=== PATIENT | male | born 1950 | race Caucasian/White ===

== ENCOUNTER 2016-04-17 20:07 | Emergency (ER) | payer BC ==
[~2016-04-17] VITALS: Ht 182.9 cm; Wt 90.7 kg
[2016-04-17 21:22] LABS: BASO % 0 % (0-3); EOS % 0 % (0-3); HEMATOCRIT 46.4 % (39.0-53.0); HEMOGLOBIN 15.5 g/dL (13.0-17.5); LYMPH # 0.6 x10^3/uL (1.0-4.8); LYMPH % 5 % (24-48); MEAN CORPUSCULAR HEMOGLOBIN 33 pg (25-35); MEAN CORPUSCULAR HGB CONC 34 g/dL (31-37); MEAN CORPUSCULAR VOLUME 98 fL (79-100); MONO % 10 % (0-9); NEUT % 84 % (31-73); PLATELET COUNT 297 x10^3/uL (140-400); RED BLOOD COUNT 4.75 x10^6/uL (4.30-5.70); RED CELL DISTRIBUTION WIDTH 13.7 % (11.5-14.5); WHITE BLOOD COUNT 12.3 x10^3/uL (4.0-11.0)
[2016-04-17 21:40] LABS: CALCIUM 9.1 mg/dL (8.5-10.1); GFR 75.5; POTASSIUM 3.8 mmol/L (3.5-5.1)
[2016-04-17 21:46] LABS: ALBUMIN 3.7 g/dL (3.4-5.0); DIRECT BILIRUBIN 0.1 mg/dL (0.0-0.2); TOTAL BILIRUBIN 1.1 mg/dL (0.2-1.0); TOTAL PROTEIN 7.5 g/dL (6.4-8.2)
--- NOTE | 2016-04-17 22:05 | RAD ---
PROCEDURE Head CT without contrast. HISTORY Intracranial hemorrhage. TECHNIQUE Computed tomographic images of the head were obtained without contrast. One or more of the following individualized dose reduction techniques were utilized for this examination: 1. Automated exposure control; 2. Adjustment of the mA and/or kV according to patient size; 3. Use of iterative reconstruction technique. COMPARISON None. FINDINGS There is no acute or subacute hemorrhage. There is no mass effect or midline shift. There is no hydrocephalus. There are scattered areas of hypodensity within the cerebral white matter, likely due to chronic small vessel disease. There is mild cerebral volume loss. There is severe left maxillary and moderate bilateral ethmoid sinus mucosal thickening. The orbits and mastoid air cells are clear. No calvarial lesion is seen. IMPRESSION 1. Scattered areas of hypodensity within the cerebral white matter, likely due to chronic small vessel disease. 2. Severe left maxillary and moderate bilateral ethmoid sinus disease. 3. Note is made that MRI is more sensitive for acute infarction. Electronically signed by: Melanie Jones (Apr 17, 2016 22:04:47)
[2016-04-17 22:24] LABS: OBC FLU VALID
[2016-04-17 22:46] LABS: BILIRUBIN,URINE NEGATIVE (NEG); GLUCOSE,URINE NEGATIVE (NEG); NITRITE,URINE NEGATIVE (NEG); PH,URINE 5.5; PROTEIN,URINE 100 mg/dL (NEG-TRACE); UROBILINOGEN,URINE 0.2 mg/dL (0.2 mg/dL)
[2016-04-17 22:52] LABS: BACTERIA,URINE FEW /HPF (0-FEW); SQUAMOUS EPITHELIAL CELL,UR MANY /LPF
[2016-04-17 23:04] VITALS: BP 168/95
[2016-04-17] MEDS ORDERED: OSEL75CA PO (23:16)
[2016-04-17] MEDS ORDERED: IBUP200T77 PO (23:16)
[2016-04-17] MEDS ORDERED: AZIT250T6 PO (23:16)
--- NOTE | 2016-04-17 23:16 | PHYS DOC ---
Past Medical History Past Medical History: Hypertension Past Surgical History: Other Additional Past Surgical Histo: HERNIA REPAIR Alcohol Use: None Drug Use: None Adult General Chief Complaint Chief Complaint: Influenza HPI HPI 65-year-old male presenting to the emergency department with a productive cough for the past 3 weeks. He reports thick cleared sputum. He reports fevers myalgias and chills at home. He has been using multiple different medications including cough syrups antibiotics and steroids and has been seen by his primary care. Today he has had worsening shortness of breath with headache and body aches. His pain is moderate intermittent generalized and without alleviating factors. Review of systems is negative for chest pain abdominal pain nausea or vomiting. All other review of systems is negative unless otherwise noted in history of present illness. Review of Systems Review of Systems SEE ABOVE. Allergies Allergies Allergies Coded Allergies Type Severity Reaction Last Updated Verified meperidine Allergy Intermediate 04/17/16 Yes Physical Exam Physical Exam Constitutional: Well developed, well nourished, no acute distress, non-toxic appearance. HENT: Normocephalic, atraumatic, bilateral external ears normal, oropharynx moist, no oral exudates, nose normal. [] Eyes: PERRLA, EOMI, conjunctiva normal, no discharge. Neck: Normal range of motion, no tenderness, supple, no stridor. [] Cardiovascular:Heart rate regular rhythm, no murmur Lungs & Thorax: Bilateral breath sounds clear to auscultation [] Abdomen: Bowel sounds normal, soft, no tenderness, no masses, no pulsatile masses. Skin: Warm, dry, no erythema, no rash. [] Back: No tenderness, no CVA tenderness. [] Extremities: No tenderness, no cyanosis, no clubbing, ROM intact, no edema. Neurologic: Alert and oriented X 3, normal motor function, normal sensory function, no focal deficits noted. Psychologic: Affect normal, judgement normal, mood normal. [] Current Patient Data Vital Signs Vital Signs Date Time Temp Pulse Resp B/P Pulse Ox O2 Delivery O2 Flow Rate FiO2 04/17/16 23:04 100 168/95 04/17/16 20:49 99.3 25 96 Room Air 99.3 Lab Values Laboratory Tests Test 04/17/16 21:15 04/17/16 22:22 04/17/16 22:38 White Blood Count 12.3x10^3/uL (4.0-11.0) H Red Blood Count 4.75x10^6/uL (4.30-5.70) Hemoglobin 15.5g/dL (13.0-17.5) Hematocrit 46.4% (39.0-53.0) Mean Corpuscular Volume 98fL (79-100) Mean Corpuscular Hemoglobin 33pg (25-35) Mean Corpuscular Hemoglobin Concent 34g/dL (31-37) Red Cell Distribution Width 13.7% (11.5-14.5) Platelet Count 297x10^3/uL (140-400) Neutrophils (%) (Auto) 84% (31-73) H Lymphocytes (%) (Auto) 5% (24-48) L Monocytes (%) (Auto) 10% (0-9) H Eosinophils (%) (Auto) 0% (0-3) Basophils (%) (Auto) 0% (0-3) Neutrophils # (Auto) 10.3x10^3uL (1.8-7.7) H Lymphocytes # (Auto) 0.6x10^3/uL (1.0-4.8) L Monocytes # (Auto) 1.3x10^3/uL (0.0-1.1) H Eosinophils # (Auto) 0.0x10^3/uL (0.0-0.7) Basophils # (Auto) 0.0x10^3/uL (0.0-0.2) Sodium Level 142mmol/L (136-145) Potassium Level 3.8mmol/L (3.5-5.1) Chloride Level 104mmol/L (98-107) Carbon Dioxide Level 26mmol/L (21-32) Anion Gap 12 (6-14) Blood Urea Nitrogen 16mg/dL (8-26) Creatinine 1.0mg/dL (0.7-1.3) Estimated GFR (Cockcroft-Gault) 75.5 Glucose Level 104mg/dL (70-99) H Calcium Level 9.1mg/dL (8.5-10.1) Total Bilirubin 1.1mg/dL (0.2-1.0) H Direct Bilirubin 0.1mg/dL (0.0-0.2) Aspartate Amino Transferase (AST) 18U/L (15-37) Alanine Aminotransferase (ALT) 26U/L (16-63) Alkaline Phosphatase 77U/L (46-116) Troponin I Quantitative < 0.017ng/mL (0.000-0.055) Total Protein 7.5g/dL (6.4-8.2) Albumin 3.7g/dL (3.4-5.0) Lipase 173U/L (73-393) Influenza Type A Antigen Positive (NEGATIVE) Influenza Type B Antigen Negative (NEGATIVE) Urine Collection Type Unknown Urine Color Yellow Urine Clarity Cloudy Urine pH 5.5 Urine Specific Turner >=1.030 Urine Protein 100mg/dL (NEG-TRACE) Urine Glucose (UA) Negativemg/dL (NEG) Urine Ketones (Stick) Negativemg/dL (NEG) Urine Blood Small (NEG) Urine Nitrite Negative (NEG) Urine Bilirubin Negative (NEG) Urine Urobilinogen Dipstick 0.2mg/dL (0.2 mg/dL) Urine Leukocyte Esterase Negative (NEG) Urine RBC 3-5/HPF (0-2) Urine WBC 1-4/HPF (0-4) Urine Squamous Epithelial Cells Many/LPF Urine Amorphous Sediment Present/HPF Urine Bacteria Few/HPF (0-FEW) Urine Granular Casts Occasional/HPF Urine Mucus Marked/LPF Laboratory Tests 04/17/16 21:15 Laboratory Tests 04/17/16 21:15 EKG EKG EKG shows sinus rhythm with regular rate. Normal intervals. left jarrell axis. ST segments are congruent. Not suggestive of ACS. Reviewed by myself.[] Radiology/Procedures Radiology/Procedures []Chest x-ray reviewed by myself shows no obvious infiltrate or pneumothorax present. No obvious acute cardiopulmonary process present. Course & Med Decision Making Course & Med Decision Making Pertinent Labs and Imaging studies reviewed. (See chart for details) [] 65-year-old male presenting to the emergency department with signs and symptoms suggestive of influenza. On examination the patient had a low-grade temperature with mild tachycardia. Otherwise hypertension. Physical exam was unremarkable. Chest x-ray unremarkable. EKG unremarkable. Blood work obtained which showed mild leukocytosis urinalysis showed dehydration without suggestion of infection. Chemistry panel unremarkable. Flu testing positive. The patient was prescribed Tamiflu ibuprofen and azithromycin to follow-up with his primary care physician over the next 2-3 days. Dragon Disclaimer Dragon Disclaimer This electronic medical record was generated, in whole or in part, using a voice recognition dictation system. Departure Departure Impression: Primary Impression: Influenza Disposition: ADMITTED INPATIENT Condition: STABLE Referrals: MOISÉS LUKE MD (PCP) Patient Instructions: Influenza, Adult Additional Instructions: Thank you for allowing us to participate in your care today. Followup with your primary care physician in 3 days if your symptoms do not improve. If you do not have a primary care provider you can ask for a list of our primary care providers. Return to the emergency department you have any new or concerning findings. This should be evaluated by the primary care physician and any necessary consulting services for continued management within a few days after discharge. Return to emergency room if you have any new or concerning symptoms including but not limited to fever, chills, nausea, vomiting, intractable pain, any new rashes, chest pain, shortness of air, uncontrolled bleeding, difficulty breathing, and/or vision loss. Scripts Azithromycin (Azithromycin Tablet)250 Mg Tablet1 Pkg PO UD #6 TAB Prov:CAMPBELL LOCO MD 04/17/16 Oseltamivir Phosphate (Tamiflu)75 Mg Capsule1 Cap PO BID #10 CAP Prov:CAMPBELL LOCO MD 04/17/16 Ibuprofen 200 Mg [id number] Mg PO PRN Q6HRS PRN INFLAMMATION #15 TAB Prov:CAMPBELL LOCO MD 04/17/16 CAMPBELL LOCO MD Apr 17, 2016 23:16
--- NOTE | 2016-04-18 07:41 | RAD ---
Portable chest, 04/17/2016: History: Cough Comparison is made to a study from 11/28/2010. The heart size and pulmonary vascularity are normal. There is mild tortuosity of the thoracic aorta. No pulmonary infiltrates are seen. There is no evidence of pleural fluid. Mild spurring is present in the spine. IMPRESSION: No acute cardiopulmonary abnormality is detected.
--- NOTE | 2016-04-18 09:11 | EKG ---
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
== END 2016-04-17 23:28 | disposition home or self-care (01) ==
LOC: ER 20:07
DX: J11.1 Influenza due to unidentified influenza virus with other respiratory manifestations (principal); E86.0 Dehydration; R00.0 Tachycardia, unspecified; D72.829 Elevated white blood cell count, unspecified; I10 Essential (primary) hypertension; Z88.8 Allergy status to other drugs, medicaments and biological substances
CPT/HCPCS: 36415; 70450; 71010; 80048; 80076; 81001; 83690; 84484; 85027; 87804; 93005; 99285-25

== ENCOUNTER → 2018-04-03 | Outpatient (CLI) | payer OTHER ==
[~2018-04-03] MED LIST: AZIT250T6 PO; IBUP200T77 PO; LISI-334 PO; OSEL75CA PO; OXYC1TAB15 PO
--- NOTE | 2018-04-03 14:32 | EKG ---
[facility] [address] [place] [address] Test Date: 2018-04-03 Test Time: 14:30:07 Pat Name: LEONA RAM Department: Room: Gender: M Hospital Security Officer: CARLOS : 1950 Requested By: CARMENCITA LEE Order Number: [id number] Reading MD: Danish Fuchs MD Measurements Intervals [place] Rate: 78 P: 45 NM: 146 QRS: 1 QRSD: 88 T: 33 QT: 364 QTc: 418 Interpretive Statements SINUS RHYTHM Electronically Signed On 04-03-2018 16:42:31 MACHINE PROGRAMMER by Danish Fuchs MD
== END | disposition home or self-care (01) ==
LOC: SURGPAT 13:50
PROVIDERS: ATTEND Surgery
DX: Z01.818 Encounter for other preprocedural examination (principal); K40.90 Unilateral inguinal hernia, without obstruction or gangrene, not specified as recurrent
CPT/HCPCS: 93005

== ENCOUNTER 2018-04-06 06:52 | Day surgery (SDC) | payer OTHER ==
[~2018-04-06] VITALS: Ht 182.9 cm; Wt 84.4 kg
[~2018-04-06 06:52] MED LIST changes: -OXYC1TAB15 PO
[2018-04-06] MEDS ORDERED: BUPIVACAINE-EPI 0.25%-1:200000 MPF 30 ML VIAL. ONE (06:58)
[2018-04-06] MEDS ORDERED: ONDANSETRON PF 4 MG/2 ML VIAL. IV PRN (07:00)
[2018-04-06] MEDS ORDERED: IV RINGERS,LACTATED 1000ML 1,000 ML IV SCH (07:00)
[2018-04-06] MEDS ORDERED: LIDOCAINE 1% PF 2 ML VIAL. ID PRN (07:00)
[2018-04-06] MEDS ORDERED: PROCHLORPERAZINE 10 MG/2 ML VIAL. IV PRN (07:00)
[2018-04-06] MEDS ORDERED: fentaNYL PF VIAL 100 MCG/2 ML VIAL IV PRN ×3 (07:00→07:30)
[2018-04-06] MEDS ORDERED: PROPOFOL 20 ML IV ONE (07:05)
[2018-04-06] MEDS ORDERED: ONDANSETRON PF 4 MG/2 ML VIAL. ONE (07:05)
[2018-04-06] MEDS ORDERED: LIDOCAINE 2% PF 5 ML VIAL. ONE (07:05)
[2018-04-06] MEDS ORDERED: DEXAMETHASONE SOD PHOS 20 MG/5 ML VIAL. ONE (07:05)
[2018-04-06] MEDS ORDERED: ROCURONIUM 50 MG/5 ML VIAL. ONE (07:06)
[2018-04-06] MEDS ORDERED: SUCCINYLCHOLINE 200 MG/10 ML VIAL. ONE (07:36)
[2018-04-06] MEDS ORDERED: fentaNYL PF VIAL 100 MCG/2 ML VIAL ONE ×2 (07:36→08:16)
[2018-04-06] MEDS ORDERED: NEOSTIGMINE 10 MG/10 ML VIAL. ONE (08:17)
[2018-04-06] MEDS ORDERED: SEVOFLURANE 61 TO 120 MINUTES. IH ONE (08:17)
[2018-04-06] MEDS ORDERED: GLYCOPYRROLATE 1 MG/5 ML VIAL. ONE (08:17)
[2018-04-06] MEDS ORDERED: ePHEDrine PF IN SALINE 50 MG/5 ML DISP.SYRIN IV ONE (08:20)
[2018-04-06] MEDS ORDERED: PHENYLEPHRINE 10 MG/ML VIAL. ONE (08:53)
[2018-04-06] MEDS ORDERED: KETOROLAC 30 MG/ML INJ FOR OR. INJ ONE (08:57)
--- NOTE | 2018-04-06 09:11 | PDOC4 ---
Operative Note Operative Note Date: 04/06/2018 Preoperative diagnosis: Right inguinal hernia Postoperative diagnosis: Same Procedure: Robotic-assisted laparoscopic right inguinal hernia repair with mesh Surgeon: Mark Specimen: None Dictation: Patient is a 67-year-old male is complained of right groin pain with a bulge procedure of robotic-assisted laparoscopic right inguinal hernia repair with mesh was explained to the patient in detail risks benefits were also discussed including bleeding infection injury to intra-abdominal contents possibly necessitating further or open operations. The patient seemed to understand and gave both verbal and written consent to have the procedure performed. Patient was taken to the operative Raposa supine position general anesthesia was initiated once patient was sleep and intubated is placed in low lithotomy position and his abdomen was prepped and draped usual sterile fashion using ChloraPrep and area just above the umbilicus was injected with quarter percent Marcaine with epinephrine incision was made Lembert scalpel Veress needle was placed within the abdomen creating pneumoperitoneum once this complete a da Sudha 8 mm port was placed and a camera was placed within the abdomen to inspected patient was placed in steep Trendelenburg was noted there is fairly large right inguinal hernia with some incarcerated small bowel left side appeared normal. A 8 mm da Sudha ports placed in the right mid abdomen and a second 8 mm da Sudha ports placed in the left mid abdomen that eventually robotic then brought in and docked all port sites surgeon went to the robotic console using cautery grasper and Endo Garfield scissors the peritoneum over the right groin area was incised this was propagated posteriorly reducing all hernia contents in the hernia sac was reduced once this pocket was complete a large Bard 3-D max mesh for the right side was placed over the hernia defect the peritoneum was then closed with a running 20 the LOC absorbable suture. Surgeon re-scrubbed back to the operative field and all ports were removed and intervention robot undocked all incisions at the skin sites were closed for septic tumor Monocryl Mastisol Steri-Strips and island dressings were applied. The patient was awakened and extubated in the operating room taken to recovery in stable condition all sponge instrument needle counts listed as correct estimated blood loss 5 mL. CARMENCITA LEE MD Apr 06, 2018 09:11
[2018-04-06] MEDS ORDERED: oxyCODONE/APAP 5/325 1 TAB TABLET PO ONE ×2 (09:30)
[2018-04-06] MEDS ORDERED: OXYC1TAB15 PO (09:44)
[2018-04-06] MEDS: fentaNYL PF VIAL 100 MCG/2 ML VIAL IV PRN ×2 (09:59→10:16)
--- NOTE | 2018-04-06 10:19 | DISCH ---
DISCHARGE INSTRUCTIONS Condition on Discharge Condition on Discharge: Stable Activity After Discharge Activity Instructions for Disc: Avoid exertion Other activity instructions: no lifting more than 20 pounds for 2 weeks Diet after Discharge Diet after Discharge: Regular Wound Incision Care Other wound/incision instructi: Martha shower in 24 hours Contacting the DRAlonzo after DC Call your doctor for: If your condition worsens Follow-Up Follow up with: Dr. Lee in 2 weeks CARMENCITA LEE MD Apr 06, 2018 10:19
[2018-04-06 10:50] VITALS: BP 143/86
== END 2018-04-06 11:10 | disposition home or self-care (01) ==
LOC: SURG 06:52
PROVIDERS: ATTEND Surgery
DX: K40.90 Unilateral inguinal hernia, without obstruction or gangrene, not specified as recurrent (principal); I10 Essential (primary) hypertension; F17.200 Nicotine dependence, unspecified, uncomplicated; Z88.8 Allergy status to other drugs, medicaments and biological substances; Z88.6 Allergy status to analgesic agent; Z82.49 Family history of ischemic heart disease and other diseases of the circulatory system; Z79.899 Other long term (current) drug therapy
CPT/HCPCS: 49650; A7015; C1781; C1782; J0330; J0696; J1100; J1885; J2001; J2405; J2704; J2710; J3010; J3490; S2900

== ENCOUNTER → 2018-12-26 | Outpatient (CLI) | payer OTHER ==
[~2018-12-26] MED LIST changes: +OXYC1TAB15 PO
--- NOTE | 2018-12-26 16:39 | RAD ---
EXAM: Soft tissue ultrasound right groin. HISTORY: Right inguinal hernia repair in March. Now with groin pain after a pop. COMPARISON: None. FINDINGS: Sonographic evaluation of the right groin was performed at the site of concern. This reveals a recurrent fat-containing hernia. The hernia sac measures 4.7 x 2.8 cm. No bowel loops are involved. IMPRESSION: 1. Fat-containing recurrent right inguinal hernia. Electronically signed by: Alicja Oliva MD (12/26/2018 4:36 PM) [facility]
== END | disposition home or self-care (01) ==
LOC: US 14:57
PROVIDERS: ATTEND Surgery
DX: K40.91 Unilateral inguinal hernia, without obstruction or gangrene, recurrent (principal)
CPT/HCPCS: 76881

== ENCOUNTER 2019-03-22 06:58 | Day surgery (SDC) | payer MEDICARE ==
[~2019-03-22] VITALS: Ht 182.9 cm; Wt 84.0 kg
[~2019-03-22 06:58] MED LIST changes: +ACETAMINOPHEN 500 MG TABLET PO PRN
[2019-03-22] MEDS ORDERED: fentaNYL PF VIAL 100 MCG/2 ML VIAL IV PRN ×2 (07:00)
[2019-03-22] MEDS ORDERED: ONDANSETRON PF 4 MG/2 ML VIAL. IV PRN (07:00)
[2019-03-22] MEDS ORDERED: IV RINGERS,LACTATED 1000ML 1,000 ML IV SCH (07:00)
[2019-03-22] MEDS ORDERED: LIDOCAINE 1% PF 2 ML VIAL. ID PRN (07:00)
[2019-03-22] MEDS ORDERED: HYDROmorphone 2 MG/ML VIAL IV PRN (07:00)
[2019-03-22] MEDS ORDERED: PROCHLORPERAZINE 10 MG/2 ML VIAL. IV PRN (07:00)
[2019-03-22] MEDS ORDERED: MORPHINE SULFATE 2 MG/ML VIAL. IV PRN (07:00)
[2019-03-22] MEDS ORDERED: OMEP40CA45 PO (07:17)
[2019-03-22] MEDS ORDERED: BUPIVACAINE-EPI 0.25%-1:200000 MPF 30 ML VIAL. ONE (07:23)
[2019-03-22] MEDS ORDERED: PROPOFOL 20 ML IV ONE (07:45)
[2019-03-22] MEDS ORDERED: ROCURONIUM 50 MG/5 ML VIAL. ONE (07:45)
[2019-03-22] MEDS ORDERED: LIDOCAINE 2% PF 5 ML VIAL. ONE (07:45)
[2019-03-22] MEDS ORDERED: DEXAMETHASONE SOD PHOS 4 MG/ML VIAL ONE (07:45)
[2019-03-22] MEDS ORDERED: fentaNYL PF VIAL 100 MCG/2 ML VIAL ONE (07:45)
[2019-03-22] MEDS ORDERED: ONDANSETRON PF 4 MG/2 ML VIAL. ONE (07:45)
[2019-03-22] MEDS ORDERED: MIDAZOLAM HCL/PF 2 MG/2 ML VIAL. ONE (07:45)
--- NOTE | 2019-03-22 07:48 | PDOC1 ---
History and Physical Date of Admission Date of Admission DATE: 03/22/19 TIME: 07:45 Identification/Chief Complaint Chief Complaint Right groin pain Source Source: Patient History of Present Illness History of Present Illness 68-year-old male had a right inguinal hernia repair done March 2018 several months after he developed recurrent right groin pain ultrasound shows recurrent right inguinal hernia Past Medical History Cardiovascular: HTN Pulmonary: No pertinent hx GI: No pertinent hx Heme/Onc: No pertinent hx Hepatobiliary: No pertinent hx Psych: No pertinent hx Rheumatologic: No pertinent hx Infectious disease: No pertinent hx ENT: No pertinent hx Endocrine: No pertinent hx Dermatology: No pertinent hx Past Surgical History Past Surgical History: Hernia Repair (bilateral inguinal hernia repairs) Family History Family History: No Significant Social History Smoke: No ALCOHOL: none Drugs: None Current Medications Current Medications Current Medications Ondansetron HCl (Zofran) 4 mg PRN Q6HRS PRN IV NAUSEA/VOMITING; Start 03/22/19 at 07:00; Stop 03/23/19 at 06:59 Fentanyl Citrate (Fentanyl 2ml Vial) 25 mcg PRN Q5MIN PRN IV MILD PAIN 1-3; Start 03/22/19 at 07:00; Stop 03/23/19 at 06:59 Fentanyl Citrate (Fentanyl 2ml Vial) 50 mcg PRN Q5MIN PRN IV MODERATE TO SEVERE PAIN; Start 03/22/19 at 07:00; Stop 03/23/19 at 06:59 Morphine Sulfate (Morphine Sulfate) 1 mg PRN Q10MIN PRN IV SEVERE PAIN 7-10; Start 03/22/19 at 07:00; Stop 03/23/19 at 06:59 Ringer's Solution 1,000 ml @ 30 mls/hr Q24H IV Last administered on 03/22/19at 07:25; Start 03/22/19 at 07:00; Stop 03/22/19 at 18:59 Lidocaine HCl (Xylocaine-Mpf 1% 2ml Vial) 2 ml PRN 1X PRN ID PRIOR TO IV START; Start 03/22/19 at 07:00; Stop 03/23/19 at 06:59 Hydromorphone HCl (Dilaudid) 0.5 mg PRN Q10MIN PRN IV SEV PAIN, Second choice; Start 03/22/19 at 07:00; Stop 03/23/19 at 06:59 Prochlorperazine Edisylate (Compazine) 5 mg PACU PRN PRN IV NAUSEA, MRX1; Start 03/22/19 at 07:00; Stop 03/23/19 at 06:59 Acetaminophen (Tylenol) 1,000 mg OC PROC PRN PO PRE-OP Last administered on 03/22/19at 07:26; Start 03/22/19 at 06:00; Stop 03/22/19 at 18:00 Cefazolin Sodium/ Dextrose 50 ml @ 100 mls/hr 1X PREOP PRN IV PRIOR TO PROCEDURE; Start 03/22/19 at 06:00; Stop 03/22/19 at 18:00 Bupivacaine HCl/ Epinephrine Bitart (Sensorcaine-Epi 0.25%-1:069002 Mpf) 30 ml STK-MED ONCE .ROUTE ; Start 03/22/19 at 07:23; Stop 03/22/19 at 07:23; Status DC Active Scripts Active Reported Omeprazole 40 Mg Capsule.dr 1 Cap PO DAILY Lisinopril 20 Mg Tablet 1 Tab PO BID Allergies Allergies: Coded Allergies: meperidine (Verified Adverse Reaction, Intermediate, Pt imobilized. Makes skin hurt., 03/22/19) morphine (Verified Adverse Reaction, Mild, Doesn't work, 03/22/19) ROS Genitourinary: YES Pain (right groin pain) Physical Exam General: Alert, Oriented X3, Cooperative, mild distress HEENT: Atraumatic, PERRLA, EOMI Lungs: Clear to auscultation, Normal air movement Heart: RRR, no murmurs Abdomen: Normal bowel sounds, Soft, No tenderness Male Genitals Exam: inguinal tenderness (right groin tenderness with asymmetry) Rectal Exam: not examined Extremities: No edema Skin: No significant lesion Neuro: Normal speech Psych/Mental Status: Mental status NL Vitals Vitals Vital Signs Date Time Temp Pulse Resp B/P (MAP) Pulse Ox O2 Delivery O2 Flow Rate FiO2 03/22/19 07:21 97.9 77 20 100 97.9 03/22/19 07:13 163/87 Room Air VTE Prophylaxis Ordered VTE Prophylaxis Devices: Yes VTE Pharmacological Prophylaxi: Contraindicated Assessment/Plan Assessment/Plan Recurrent right inguinal hernia plan robotic-assisted laparoscopic inguinal hernia repair with mesh CARMENCITA LEE MD Mar 22, 2019 07:48
[2019-03-22] MEDS ORDERED: ceFAZolin 2GM PREMIX 2 GM/50 ML BAG IV ONE (08:00)
[2019-03-22] MEDS ORDERED: MINERAL OIL for SURGERY 10 ML VIAL. MC ONE (08:39)
[2019-03-22] MEDS ORDERED: SEVOFLURANE 61 TO 120 MINUTES. IH ONE (08:46)
[2019-03-22] MEDS ORDERED: PHENYLEPHRINE in 0.9% NACL PF 1 MG/10 ML SYRINGE. IV ONE (08:46)
[2019-03-22] MEDS ORDERED: KETOROLAC 30 MG/ML VIAL. ONE (09:00)
[2019-03-22] MEDS ORDERED: NEOSTIGMINE METHYLSULFATE 5 MG/5 ML SYRINGE. ONE (09:00)
[2019-03-22] MEDS ORDERED: GLYCOPYRROLATE 1 MG/5 ML VIAL. ONE (09:00)
--- NOTE | 2019-03-22 09:42 | PDOC4 ---
Operative Note Operative Note Date: 03/22/2019 Preoperative diagnosis: Recurrent right inguinal hernia Postoperative diagnosis: Same Procedure: Robotic-assisted laparoscopic right inguinal hernia repair with mesh Surgeon: Mark Specimen: None Dictation: Patient is a 68-year-old woman who had bilateral inguinal hernia repairs many years ago developed a recurrence in the right inguinal hernia underwent laparoscopic repair approximately 1 year ago has developed a recurrence procedure of robotic-assisted laparoscopic right inguinal hernia repair was explained to the patient detail risk benefits were also discussed including bleeding infection injury to intra-abdominal contents possibly necessitating further or open operations alternatives to this procedure also discussed with the patient who seemed to understand and gave both verbal and written consent to have the procedure performed. Patient was taken to the operating room placed in supine position general anesthesia was initiated once patient was sleep and intubated was placed in low lithotomy position and his abdomen was prepped and draped usual sterile fashion using ChloraPrep and area at the umbilicus was injected with quarter percent Marcaine with epinephrine incision was made 11 blade scalpel and a varies needle was placed within the abdomen creating pneumoperitoneum once this complete 8mm da Sudha port was placed and a da Sudha camera was placed within the abdomen which was inspected was noted in the right groin have a fairly large direct inguinal hernia. A area in the right mid abdomen was injected with quarter percent Marcaine incision was made with an 11 blade scalpel and a 8 mm da Sudha port was placed in the right side as well as on the left. Eventually robot was brought in and docked all port sites surgeon went to the robotic console using grasper and Endo Garfield scissors the peritoneum over the right side was taken down reducing the hernia defect. Fairly large direct hernia used a Bard ventral light ST mesh 4 x 6" this was placed over the hernia defect this was treated into place with 3-0 Vicryl superiorly along the border of the mesh to the abdominal wall and then a suture was placed at the Gilmer's ligament. The perineum was then closed over the mesh with a running V LOC absorbable suture. Once this was complete the pneumoperitoneum was reduced all ports removed the skin incisions were closed f or septic and a Monocryl Mastisol Steri-Strips and island dressings were applied. Patient was awakened and asked bated operating room taken to recovery in stable condition all sponge instrument needle counts listed as correct estimated blood loss 5 mL CARMENCITA LEE MD Mar 22, 2019 09:42
--- NOTE | 2019-03-22 09:44 | DISCH ---
DISCHARGE INSTRUCTIONS Condition on Discharge Condition on Discharge: Stable Activity After Discharge Activity Instructions for Disc: Avoid exertion Other activity instructions: no lifting more than 20 pounds for 2 weeks Diet after Discharge Diet after Discharge: Regular Wound Incision Care Other wound/incision instructi: a shower in 24 hours Contacting the DRAlonzo after DC Call your doctor for: If your condition worsens Follow-Up Follow up with: Dr. Lee in 2 weeks CARMENCITA LEE MD Mar 22, 2019 09:44
[2019-03-22] MEDS ORDERED: CELE200C PO (10:00)
[2019-03-22] MEDS ORDERED: CELECOXIB 100 MG CAPSULE. PO SCH (10:00)
[2019-03-22] MEDS ORDERED: GABA300C18 PO (10:02)
[2019-03-22 10:50] VITALS: BP 138/89
[2019-03-22] MEDS ORDERED: GABAPENTIN 300 MG CAPSULE. PO SCH (11:00)
== END 2019-03-22 11:35 | disposition home or self-care (01) ==
LOC: SURG 06:58
PROVIDERS: ATTEND Surgery
DX: K40.91 Unilateral inguinal hernia, without obstruction or gangrene, recurrent (principal); I10 Essential (primary) hypertension; Z98.890 Other specified postprocedural states; Z88.8 Allergy status to other drugs, medicaments and biological substances; Z79.899 Other long term (current) drug therapy
CPT/HCPCS: 49651; J1100; J1885; J2001; J2250; J2370; J2405; J2704; J2710; J3010; J3490; S2900; A7015; C1781; J0696; J7120

== ENCOUNTER → 2019-04-09 | Outpatient (CLI) | payer OTHER ==
[2019-03-22 10:50] VITALS: BP 138/89
[~2019-04-09] MED LIST changes: -ACETAMINOPHEN 500 MG TABLET PO PRN; +CELE200C PO; +GABA300C18 PO; +OMEP40CA45 PO
--- NOTE | 2019-04-09 13:57 | KCIC ---
MRI Cervical Spine Without Contrast History: Radiculopathy, previous fall, progressive neck pain, loss of range of motion, stiffness, crepitus, bilateral upper extremity numbness Technique: Multiplanar, multi sequential noncontrast MR imaging was performed of the cervical spine. Comparison: None Findings: There is significant motion degradation. Cervical cord caliber is within normal limits, no defined or expansile cervical cord signal abnormality. Accurate evaluation for subtle cord signal change is limited due to motion degradation. There is mild reversal of the lordotic curvature centered near C5-C6. There is grade 1 posterior subluxation C6 relative to C7, very mild grade 1 anterior spondylolisthesis C3-4 and C4-C5. There is fairly advanced degenerative disc disease greater posteriorly at C6-7, lesser degree of degenerative disc disease at C5-C6, and minimally at C3-C4. There is edema associated with the facet articulations greater on the right at C2-3. C2-C3: There is severe facet degenerative change on the left, to lesser degree on the right. Spinal canal and right neural foramen are adequate, likely mild narrowing of the left neural foramen from posteriorly by facet. C3-C4: There is severe left facet hypertrophic change, to lesser degree on the right. There is minimal disc osteophyte complex, superimposed shallow protrusion greatest centrally about 1 to 2 mm AP, mild indentation upon the ventral thecal sac. Central canal is adequate about 11 mm. There is left uncovertebral degenerative change. Difficult to accurately characterize due to motion, there is probable moderate to severe narrowing of the left neural foramen, possible mild narrowing on the right. C4-C5: Spinal canal is adequate. There is severe, left greater than right facet degenerative change. There may be minimal narrowing of the right neural foramen, left neural foramen not significantly narrowed. C5-C6: There is severe facet degenerative change bilaterally. There is disc osteophyte complex and bulge. There is at least mild buckling of the ligamentum flavum. Central canal is narrowed to about 7 to 8 mm also with mild, right greater than left lateral recess stenosis. There is likely uncovertebral degenerative change. Neural foramina are poorly characterized due to motion, probable fairly severe neural foramina compromise bilaterally. C6-C7: There is disc osteophyte complex and bulge superimposed on the posteriorly subluxed C6 vertebral body margin. There is buckling of the ligamentum flavum. Spinal canal is narrowed to about 7 to 8 mm. There is severe bilateral facet degenerative change, also bilateral uncovertebral degenerative change. Neural foramina are poorly characterized due to severe motion, probable severe left and moderate to severe right neural foramina compromise. C7-T1: Spinal canal and left neural foramen are adequate. Facet and uncovertebral degenerative change contributes to likely mild narrowing of the right neural foramen. Impression: 1. There is fairly advanced degenerative disc disease at C6-7 and to lesser degree at C5-6. There is mild spondylosis. 2. There is central canal stenosis about 7 mm at C5-6 and C6-7. 3. There is multilevel facet and uncovertebral degenerative change. There is multilevel cervical neural foramina compromise although limited accurate characterization of the neural foramina due to motion degradation. There is likely more significant neural foramina compromise bilaterally at C6-7 and C5-C6 and on the left at C3-C4. 4. There is multilevel mild abnormal alignment as stated. There is multilevel cervical facet degenerative change. There is some edema associated with the facet articulations greater on the right at C2-3 more likely to be reactive in etiology. Electronically signed by: Long Mora MD (04/09/2019 1:54 PM) [facility]
== END | disposition home or self-care (01) ==
LOC: KCIC MRI 12:19
PROVIDERS: ATTEND Family Medicine
DX: M50.31 Other cervical disc degeneration, high cervical region (principal); M47.22 Other spondylosis with radiculopathy, cervical region; M43.12 Spondylolisthesis, cervical region; M89.38 Hypertrophy of bone, other site; M25.78 Osteophyte, vertebrae; M50.23 Other cervical disc displacement, cervicothoracic region; M53.2X2 Spinal instabilities, cervical region
CPT/HCPCS: 72141

== ENCOUNTER 2021-03-02 01:13 | Inpatient (IN) | payer MEDICARE, OTHER ==
[~2021-03-02] VITALS: Ht 180.3 cm; Wt 81.8 kg
[~2021-03-02 01:13] MED LIST changes: -LISI-334 PO; +LISI20TA18 PO; -OMEP40CA45 PO; +OMEP40CA7 PO
--- NOTE | 2021-03-02 02:17 | PHYS DOC ---
Past Medical History Past Medical History: Hypertension Past Surgical History: Other Additional Past Surgical Histo: HERNIA REPAIR Smoking Status: Never Smoker Alcohol Use: None Drug Use: None General Adult HPI: HPI: Patient is a 70 year old male who presents with chest pain that began tonight. He reports that he began feeling headache, malaise, fevers and chills a little over 24 hours ago. He does report some mild dyspnea. He denies pleuritic pain. He reports mild, dry cough. Denies hemoptysis. He describes the chest pain is midsternal and pressure-like. The pain is intermittent, without specific exacerbating or relieving factors. He reports the chest pain is not as severe now as it was previously. He does report nausea without vomiting. He reports a few episodes of loose stools. He denies recent surgery, travel, hospitalization. He denies lower extremity pain or swelling. He does report some dizziness associated the chest pain, denies diaphoresis. He is not vaccinated gets COVID-19 or influenza. His is not vaccinated either. She denies any respiratory symptoms or chest pain symptoms. The patient and his indicate that he has a "leaky blood vessel" in his brain. He reportedly saw neurology for this back in 2010. He reports that he had some weakness and had a CT scan, which showed the abnormality. I repeatedly asked him if he had an aneurysm, and he reports that he was not told he had an aneurysm. He does report that he was told by his neurologist to never take aspirin. The patient also reports that he has no medical problems, takes no medications. Previous records do indicate that he has been prescribed lisinopril for hypertension. I am unable to locate any previous records from 2010 to clarify any of the information the patient and his are trying to explain. Review of Systems: Review of Systems: Constitutional: Fever, chills, malaise. Eyes: Denies change in visual acuity. [] HENT: Denies nasal congestion or sore throat. [] Respiratory: Dry cough. Mild dyspnea. Denies hemoptysis. Cardiovascular: Chest pain. Denies peripheral edema. GI: Denies abdominal pain. Reports nausea but no vomiting. Loose stool reported. : Denies dysuria. [] Musculoskeletal: Denies back pain or joint pain. Diffuse myalgias reported. Integument: Denies rash. [] Neurologic: Headache. Denies numbness, tingling, motor weakness, syncope. Endocrine: Denies polyuria or polydipsia. [] Lymphatic: Denies swollen glands. [] Psychiatric: Denies depression or anxiety. [] Heart Score: C/O Chest Pain: Yes HEART Score for Chest Pain: HEART Score for Chest Pain Response (Comments) Value History Moderately Suspicious 1 ECG Nonspecific Repolarizatio 1 Age > 65 2 Risk Factors 1 or 2 Risk Factors 1 Troponin >1-<3x Normal Limit 1 Total 6 Risk Factors: Risk Factors: DM, Current or recent (<one month) smoker, HTN, HLP, family history of CAD, obesity. Risk Scores: Score 0 - 3: 2.5% MACE over next 6 weeks - Discharge Home Score 4 - 6: 20.3% MACE over next 6 weeks - Admit for Clinical Observation Score 7 - 10: 72.7% MACE over next 6 weeks - Early Invasive Strategies Allergies: Allergies: Allergies Coded Allergies Type Severity Reaction Last Updated Verified meperidine Adverse Reaction Intermediate Pt imobilized. Makes skin hurt. 03/22/19 Yes morphine Adverse Reaction Mild Doesn't work 03/22/19 Yes Physical Exam: PE: Constitutional: Well developed, well nourished, no acute distress, non-toxic appearance. [] HENT: Normocephalic, atraumatic, oropharynx is patent and clear without exudate or erythema, mucous membranes are moist. TMs are clear bilaterally. Eyes: PERRL, EOMI, conjunctiva normal, no discharge. No nystagmus. No scleral icterus Neck: Normal range of motion, no tenderness, supple, no stridor. No meningismus. Trachea is midline. No JVD Cardiovascular:Heart rate regular rhythm, +2 radial and +2 posterior tibial pulses bilaterally Lungs & Thorax: Bilateral breath sounds clear to auscultation, mildly diminished in bilateral bases, upper lung leija are clear, no rales, rhonchi or wheezes. Equal chest rise, no distress. Abdomen: Bowel sounds normal, soft, no tenderness, no masses, no pulsatile masses. [] Skin: Warm, dry, no erythema, no rash. [] Back: No tenderness, no CVA tenderness. [] Extremities: No tenderness, no cyanosis, no clubbing, ROM intact, no edema. No calf tenderness. Neurologic: He is awake, alert, oriented x3, cranial nerves II through XII grossly intact. 5 out of 5 motor strength all 4 extremities. Sensation is grossly intact. Speech is clear and fluent. No pronator drift or dysmetria. No limb ataxia. He is ambulatory with a steady gait. Psychologic: Affect is flat. He is cooperative. [] EKG: EKG: EKG is interpreted at 0211 Rhythm is sinus tachycardia, frequent PACs Rate 107 bpm No STEMI EKG is interpreted at 0549 Rhythm is sinus, with frequent PACs Rate is 83 bpm No STEMI Radiology/Procedures: Radiology/Procedures: IMAGING REPORT Signed PATIENT: LEONA RAM ACCOUNT: [id number] : 1950 LOCATION: ED HOLD AGE: 70 SEX: M EXAM STATUS: ADM IN ORD. PHYSICIAN: TOAN ARRIAGA DO REASON: headache PROCEDURE: CT HEAD WO CONTRAST EXAM: CT Head without IV contrast CLINICAL HISTORY: Reason: headache / Spl. Instructions: / History: COMPARISON: None. TECHNIQUE: Routine CT of the head without contrast. PQRS compliance statement - One or more of the following individualized dose reduction techniques were utilized for this study: 1. Automated exposure control 2. Adjustment of the mA and/or kV according to patient size 3. Use of iterative reconstruction technique FINDINGS: There is no evidence of hemorrhage, mass or extra-axial fluid collection. Quiroga-white differentiation is maintained with no evidence of edema. Subcortical, periventricular as well as deep white matter foci of hypoattenuation likely small vessel disease. There is no mass effect or shift of the intracranial structures. The ventricles, basilar cisterns and cortical sulci are normal in size and configuration for the patients stated age. The cerebellum and brainstem are unremarkable. The calvarium demonstrates no evidence of fracture or focal lesion. There is normal aeration of the visualized paranasal sinuses and mastoid air cells. The visualized portions of the orbits are normal. IMPRESSION: 1. No evidence for acute intracranial process. 2. White matter changes likely small vessel disease. Electronically signed by: Roman Scott MD (03/02/2021 3:51 AM) [facility] DICTATED and SIGNED BY: ROMAN SCOTT MD DATE: 03/02/21 [id number] IMAGING REPORT Signed PATIENT: LEONA RAM ACCOUNT: [id number] : 1950 LOCATION: ER AGE: 70 SEX: M EXAM STATUS: REG ER ORD. PHYSICIAN: TOAN ARRIAGA DO REASON: chest pain PROCEDURE: PORTABLE CHEST 1V EXAM: AP View of the chest DATE: 03/02/2021 3:24 AM INDICATION: Reason: chest pain / Spl. Instructions: / History: COMPARISON: 04/17/2016 FINDINGS: The heart is not enlarged. Mediastinal and hilar contours are normal. Left perihilar and lung base airspace opacities likely consolidative processes or pneumonia. No pleural effusion or pneumothorax. IMPRESSION: Left perihilar and lung base airspace opacities likely consolidative processes or pneumonia. Electronically signed by: Roman Scott MD (03/02/2021 3:47 AM) [facility] DICTATED and SIGNED BY: ROMAN SCOTT MD DATE: 03/02/21 [id number] Course & Med Decision Making: Course & Med Decision Making Pertinent Labs and Imaging studies reviewed. (See chart for details) The patient refused aspirin, he reports that he was told never to take aspirin. I amenable to review any records from 2010 in this EMR, and I see no indication of any aspirin contraindication on his previous H&P from Dr. Flores for his hernia repairs. The patient is given nitroglycerin, reportedly without any relief of pain. He is offered further pain medication, which she declines. He is given Tylenol and ibuprofen for his fever here. He is resting comfortably. He manifests no evidence of distress. He is not hypoxic. I did explain that I am concerned about his chest pain symptoms, he has never previously seen cardiology services. I recommend admission to the hospital. He is comfortable with this plan. The patient is positive for COVID-19. The patient's left, and shortly after leaving, called back and demanded to speak with me or the nurse about his condition. I kindly picked up the phone and discussed this with her, with the patient's permission. I explained that he has COVID-19. The patient's became increasingly hostile, argumentative and started yelling at me over the phone. She reports that he does not believe that he has COVID-19. She behave similarly to the nurse on the phone after I spoke with her. I did reiterate to her that I'm still recommending admission to the hospital, cardiology consultation and trending serial troponins. I did review with her that he appears to have a diagnosis of hypertension and had previously been prescribed lisinopril. The patient's became angry and yelled that the patient doesn't like to take medications, and he likes to control his blood pressure "naturally" with supplements and controlling his stress. She angrily and loudly declares that just because someone has been told they have high blood pressure doesn't mean they really have high blood pressure. I kindly excused myself from the phone call explaining that I do not feel that the conversation is beneficial, as she is becoming argumentative and hostile. I did explain that we would keep her up-to-date with any new information, if warranted. I did explain this to the patient as well. The patient expresses no concerns with his care, he is comfortable with the plan of care, and he has been quite cooperative himself. The patient admits that he has been told he has high blood pressure but simply chooses not to take the medication prescribed to him. I spoke with his primary care physician, Dr. Gideon Ram, who accepts him for admission Carolynn Disclaimer: Carolynn Disclaimer: This electronic medical record was generated, in whole or in part, using a voice recognition dictation system. Departure Departure Impression: Primary Impression: Chest pain Additional Impression: COVID-19 Disposition: ADMITTED INPATIENT Admitting Physician: Gideon Ram Condition: GUARDED Referrals: GIDEON RAM MD (PCP) TOAN ARRIAGA DO Mar 02, 2021 02:17
[2021-03-02] MEDS ORDERED: NITROGLYCERIN SUBLINGUAL 0.4 MG BOTTLE OF 25. SL PRN (02:45)
[2021-03-02 02:51] LABS: BASO % 0 % (0-3); EOS # 0.1 x10^3/uL (0.0-0.7); EOS % 1 % (0-3); HEMATOCRIT 44.2 % (39.0-53.0); HEMOGLOBIN 14.7 g/dL (13.0-17.5); LYMPH # 0.3 x10^3/uL (1.0-4.8); LYMPH % 5 % (24-48); MEAN CORPUSCULAR HEMOGLOBIN 33 pg (25-35); MEAN CORPUSCULAR HGB CONC 33 g/dL (31-37); MEAN CORPUSCULAR VOLUME 99 fL (79-100); MONO % 13 % (0-9); NEUT # 5.8 x10^3/uL (1.8-7.7); NEUT % 81 % (31-73); PLATELET COUNT 257 x10^3/uL (140-400); RED BLOOD COUNT 4.48 x10^6/uL (4.30-5.70); RED CELL DISTRIBUTION WIDTH 13.7 % (11.5-14.5); WHITE BLOOD COUNT 7.2 x10^3/uL (4.0-11.0)
[2021-03-02] MEDS ORDERED: ACETAMINOPHEN 500 MG TABLET PO ONE (03:00)
[2021-03-02 03:06] LABS: CALCIUM 8.8 mg/dL (8.5-10.1); CREATININE 1.2 mg/dL (0.7-1.3); GFR 60.2; POTASSIUM 4.3 mmol/L (3.5-5.1)
[2021-03-02 03:09] LABS: ALBUMIN 3.6 g/dL (3.4-5.0); ALBUMIN/GLOBULIN RATIO 1.1 (1.0-1.7); MAGNESIUM 2.1 mg/dL (1.8-2.4); TOTAL BILIRUBIN 0.6 mg/dL (0.2-1.0); TOTAL PROTEIN 6.9 g/dL (6.4-8.2)
--- NOTE | 2021-03-02 03:23 | EKG ---
[facility] [address] [place] [address] Test Date: 2021-03-02 Test Time: 02:09:38 Pat Name: LEONA RAM Department: Room: Gender: M Ballet Teacher: : 1950 Requested By: TOAN ARRIAGA Order Number: [id number] Reading MD: Daniel Nixon Measurements Intervals [place] Rate: 107 P: 107 [place]: 146 QRS: 19 QRSD: 98 T: 21 QT: 334 QTc: 451 Interpretive Statements SINUS TACHYCARDIA ATRIAL PREMATURE COMPLEX(ES) Electronically Signed On 03-04-2021 15:09:32 COMPARISON SHOPPER by Daniel Nixon
[2021-03-02 03:26] LABS: INFLUENZA A PATIENT NEGATIVE (NEGATIVE); INFLUENZA B PATIENT NEGATIVE (NEGATIVE)
[2021-03-02 03:38] LABS: % BANDS 3 % (0-9); % EOS 2 % (0-5); % LYMPHS 4 % (24-48); % MONOS 9 % (0-10); % SEGS 82 % (35-66); PLT ESTIMATE ADEQUATE (ADEQUATE)
[2021-03-02 03:39] LABS: TOXIC GRANULATION SLIGHT
--- NOTE | 2021-03-02 03:50 | RAD ---
EXAM: AP View of the chest DATE: 03/02/2021 3:24 AM INDICATION: Reason: chest pain / Spl. Instructions: / History: COMPARISON: 04/17/2016 FINDINGS: The heart is not enlarged. Mediastinal and hilar contours are normal. Left perihilar and lung base airspace opacities likely consolidative processes or pneumonia. No pleural effusion or pneumothorax. IMPRESSION: Left perihilar and lung base airspace opacities likely consolidative processes or pneumonia. Electronically signed by: Roman Rubio MD (03/02/2021 3:47 AM) [facility]
--- NOTE | 2021-03-02 03:54 | RAD ---
EXAM: CT Head without IV contrast CLINICAL HISTORY: Reason: headache / Spl. Instructions: / History: COMPARISON: None. TECHNIQUE: Routine CT of the head without contrast. PQRS compliance statement - One or more of the following individualized dose reduction techniques wer e utilized for this study: 1. Automated exposure control 2. Adjustment of the mA and/or kV according to patient size 3. Use of iterative reconstruction technique FINDINGS: There is no evidence of hemorrhage, mass or extra-axial fluid collection. Quiroga-white differentiation is maintained with no evidence of edema. Subcortical, periventricular as w ell as deep white matter foci of hypoattenuation likely small vessel disease. There is no mass effect or shift of the intracranial structures. The ventricles, basilar cisterns and cortical sulci are normal in size and configuration for the chayo ents stated age. The cerebellum and brainstem are unremarkable. The calvarium demonstrates no evidence of fracture or focal lesion. There is normal aeration of the visualized paranasal sinuses and mastoid air cells. The visualized portions of the orbits are normal. IMPRESSION: 1. No evidence for acute intracranial process. 2. White matter changes likely small vessel disease. Electronically signed by: Roman Rubio MD (03/02/2021 3:51 AM) [facility]
[2021-03-02] MEDS ORDERED: ONDANSETRON PF 4 MG/2 ML VIAL. IVP PRN (05:15)
[2021-03-02] MEDS ORDERED: ACETAMINOPHEN 650 MG/20.3 ML SOLUTION. PEG PRN (05:15)
[2021-03-02 06:49] LABS: BILIRUBIN,URINE NEGATIVE (NEG); CLARITY,URINE CLEAR; COLOR,URINE YELLOW; NITRITE,URINE NEGATIVE (NEG); PROTEIN,URINE NEGATIVE (NEG-TRACE); UROBILINOGEN,URINE 0.2 mg/dL (0.2 mg/dL)
[2021-03-02 06:58] LABS: BARBITURATES NEG (NEG); BENZODIAZEPINES NEG (NEG); CANNABINOIDS NEG (NEG); COCAINE NEG (NEG); METHADONE NEG (NEG); OPIATES NEG (NEG); PHENCYCLIDINE NEG (NEG)
[2021-03-02 06:59] LABS: AMPHETAMINE/METHAMPHETAMINE POS (NEG)
[2021-03-02 07:10] LABS: BACTERIA,URINE 0 /HPF (0-FEW); WBC,URINE OCC /HPF (0-4)
[2021-03-02] MEDS ORDERED: IBUPROFEN 400 MG TABLET. PO ONE (08:00)
[2021-03-02] MEDS: GABAPENTIN 300 MG CAPSULE. PO SCH ×2 (08:23→14:16)
[2021-03-02] MEDS ORDERED: PANTOPRAZOLE 40 MG TABLET.DR. PO SCH (08:30)
--- NOTE | 2021-03-02 08:40 | EKG ---
[facility] [address] [place] [address] Test Date: 2021-03-02 Test Time: 05:46:35 Pat Name: LEONA RAM Department: Room: ED HOLD 16 Gender: M Geological Engineer: : 1950 Requested By: TOAN ARRIAGA Order Number: [id number] Reading MD: Daniel Nixon Measurements Intervals [place] Rate: 83 P: 80 [place]: 146 QRS: 25 QRSD: 96 T: 39 QT: 370 QTc: 440 Interpretive Statements SINUS RHYTHM ATRIAL PREMATURE COMPLEX(ES) Electronically Signed On 03-04-2021 15:08:42 INVENTORY CONTROLLER by Daniel Nixon
--- NOTE | 2021-03-02 08:59 | HP ---
DATE OF SERVICE: 03/02/2021 ADMIT DATE: 03/02/2021 CHIEF COMPLAINT: Chest pressure. HISTORY OF PRESENT ILLNESS: A 70-year-old white male with a history of hypertension, takes lisinopril periodically, but not on a regular basis. He has never had any cardiac events. He came in with a few days of fatigue, some cough and pressure-like lower midsternal discomfort. This is not necessarily activity related. Denies dysphagia, fever, chills, sputum production or other complaints. COVID in the ER was positive as well as his urine drug screen for meth, but he denies use. Troponins have been negative x 2 at this point. PAST MEDICAL HISTORY: He denies all vaccines in the past, had a COVID vaccine. He has had no serious medical problems in the past. There are no specific cardiac evaluation that he is aware of. ALLERGIES: Denies drug allergies. SOCIAL HISTORY: He smoked since he was 17. Alcohol use is intermittent. He is . He is not currently employed. FAMILY HISTORY: Unremarkable. REVIEW OF SYSTEMS: No other complaints at this time. PHYSICAL EXAMINATION: ENT: All within normal limits with a mask in place. NECK: No carotid bruits, nodes or masses. LUNGS: Decreased breath sounds. No tachypnea or wheezing is heard. No tachycardia is present. CARDIOVASCULAR: Regular rate. No irregular beat, tachycardia or murmur. ABDOMEN: Soft, benign, nontender. EXTREMITIES: Unremarkable. ASSESSMENT: Positive for COVID-19 and methamphetamine use. Chest pain is suspicious for cardiac origin. Risk factors certainly include history of hypertension, chronic tobacco use as well. PLAN: Echocardiogram. Further evaluation based on results. KIANA DR: Joy TID: [id number]
[2021-03-02] MEDS ORDERED: ASPIRIN 325 MG TABLET PO SCH (09:00)
--- NOTE | 2021-03-02 11:29 | PDOC2 ---
JAS COLLAZO SALES FORECAST ANALYST 03/02/21 1129: CARDIAC CONSULT DATE OF CONSULT Date of Consult DATE: 03/02/21 TIME: 11:22 REASON FOR CONSULT Reason for Consult: Chest pain REFERRING PHYSICIAN Referring Physician: Ana SOURCE Source: Chart review, Patient HISTORY OF PRESENT ILLNESS HISTORY OF PRESENT ILLNESS This is a 70 yo male admitted for complains of flu like symptoms namely, fever, chills and malaise. He had some SOA and has been having dry cough and also with some chest discomfort. Also had some nausea and vomiting and loose stools. He is unvaccinated for covid-19 and flu. Presently he denies those symptoms mentioned and reported lower sternal pressure that is nonradiating. He is not in distress but on RA he is 86% O2 sat. He answers to questions but currently sleepy. PAST MEDICAL HISTORY Cardiovascular: HTN CENTRAL NERVOUS SYSTEM: Other (No pertinent history) GI: GERD PAST SURGICAL HISTORY Past Surgical History: Hernia Repair (left inguinal), Other (lower back surgery) FAMILY HISTORY Family History: Hypertension SOCIAL HISTORY Smoke: 1 pack per day ALCOHOL: occassional Drugs: Crystal meth Lives: with Family CURRENT MEDICATIONS CURRENT MEDICATIONS Current Medications Medications (Trade) Dose Ordered Sig/Kevin Route PRN Reason Start Time Stop Time Status Last Admin Dose Admin Nitroglycerin (Nitrostat) 0.4 mg PRN Q5MIN PRN SL CHEST PAIN 03/02/21 02:45 03/02/21 03:10 Acetaminophen (Tylenol) 1,000 mg 1X ONCE PO 03/02/21 03:00 03/02/21 03:01 DC 03/02/21 03:09 Ibuprofen (Motrin) 800 mg 1X ONCE PO 03/02/21 08:00 03/02/21 08:01 DC 03/02/21 08:04 Gabapentin (Neurontin) 300 mg TID PO 03/02/21 09:00 03/02/21 08:23 Pantoprazole Sodium (Protonix) 40 mg DAILYAC PO 03/02/21 08:30 03/02/21 08:23 Aspirin (Nicolasa Aspirin) 325 mg DAILYWBKFT PO 03/02/21 09:00 03/02/21 08:26 ALLERGIES ALLERGIES: Coded Allergies: meperidine (Verified Adverse Reaction, Intermediate, Pt imobilized. Makes skin hurt., 03/22/19) morphine (Verified Adverse Reaction, Mild, Doesn't work, 03/22/19) ROS Review of System 14 point ROS evaluated with pertinent positives noted per HPI PHYSICAL EXAM General: Oriented X3, Cooperative, No acute distress, Other (drowsy) HEENT: Atraumatic, Mucous membr. moist/pink Lungs: Other (diminished) Heart: Regular rate (SR), Normal S1, Normal S2, No murmurs Abdomen: Soft, No tenderness Extremities: No cyanosis, No edema Skin: No breakdown, No significant lesion Neuro: Normal speech, Sensation intact Psych/Mental Status: Other (drowsy, flat affect) MUSCULOSKELETAL: Osteoarthritic changes both hands VITALS/I&O VITALS/I&O: Vital Signs Date Time Temp Pulse Resp B/P (MAP) Pulse Ox O2 Delivery O2 Flow Rate FiO2 03/02/21 10:06 88 18 157/80 (105) 100 Room Air 03/02/21 02:10 100.0 100.0 LABS Lab: Laboratory Tests Test 03/02/21 02:25 03/02/21 02:54 03/02/21 05:32 03/02/21 06:37 White Blood Count 7.2 x10^3/uL (4.0-11.0) Red Blood Count 4.48 x10^6/uL (4.30-5.70) Hemoglobin 14.7 g/dL (13.0-17.5) Hematocrit 44.2 % (39.0-53.0) Mean Corpuscular Volume 99 fL (79-100) Mean Corpuscular Hemoglobin 33 pg (25-35) Mean Corpuscular Hemoglobin Concent 33 g/dL (31-37) Red Cell Distribution Width 13.7 % (11.5-14.5) Platelet Count 257 x10^3/uL (140-400) Neutrophils (%) (Auto) 81 % (31-73) H Lymphocytes (%) (Auto) 5 % (24-48) L Monocytes (%) (Auto) 13 % (0-9) H Eosinophils (%) (Auto) 1 % (0-3) Basophils (%) (Auto) 0 % (0-3) Neutrophils # (Auto) 5.8 x10^3/uL (1.8-7.7) Lymphocytes # (Auto) 0.3 x10^3/uL (1.0-4.8) L Monocytes # (Auto) 1.0 x10^3/uL (0.0-1.1) Eosinophils # (Auto) 0.1 x10^3/uL (0.0-0.7) Basophils # (Auto) 0.0 x10^3/uL (0.0-0.2) Segmented Neutrophils % 82 % (35-66) H Band Neutrophils % 3 % (0-9) Lymphocytes % 4 % (24-48) L Monocytes % 9 % (0-10) Eosinophils % 2 % (0-5) Toxic Granulation Slight Platelet Estimate Adequate (ADEQUATE) Sodium Level 135 mmol/L (136-145) L Potassium Level 4.3 mmol/L (3.5-5.1) Chloride Level 100 mmol/L (98-107) Carbon Dioxide Level 29 mmol/L (21-32) Anion Gap 6 (6-14) Blood Urea Nitrogen 19 mg/dL (8-26) Creatinine 1.2 mg/dL (0.7-1.3) Estimated GFR (Cockcroft-Gault) 60.2 BUN/Creatinine Ratio 16 (6-20) Glucose Level 104 mg/dL (70-99) H Calcium Level 8.8 mg/dL (8.5-10.1) Magnesium Level 2.1 mg/dL (1.8-2.4) Total Bilirubin 0.6 mg/dL (0.2-1.0) Aspartate Amino Transferase (AST) 15 U/L (15-37) Alanine Aminotransferase (ALT) 25 U/L (16-63) Alkaline Phosphatase 86 U/L (46-116) Troponin I High Sensitivity 13 ng/L (4-75) 13 ng/L (4-75) KE-Uwo-K-Type Natriuretic Peptide 427 pg/mL (0-124) H Total Protein 6.9 g/dL (6.4-8.2) Albumin 3.6 g/dL (3.4-5.0) Albumin/Globulin Ratio 1.1 (1.0-1.7) Lipase 193 U/L (73-393) Ethyl Alcohol Level < 10 mg/dL (0-10) Influenza Type A Antigen Negative (NEGATIVE) Influenza Type B Antigen Negative (NEGATIVE) SARS-CoV-2 Antigen (Rapid) Positive (NEGATIVE) *A Urine Collection Type Unknown Urine Color Yellow Urine Clarity Clear Urine pH 6.0 (<5.0-8.0) Urine Specific [place] 1.020 (1.000-1.030) Urine Protein Negative mg/dL (NEG-TRACE) Urine Glucose (UA) Negative mg/dL (NEG) Urine Ketones (Stick) Negative mg/dL (NEG) Urine Blood Small (NEG) Urine Nitrite Negative (NEG) Urine Bilirubin Negative (NEG) Urine Urobilinogen Dipstick 0.2 mg/dL (0.2 mg/dL) Urine Leukocyte Esterase Negative (NEG) Urine RBC 3-5 /HPF (0-2) Urine WBC Occ /HPF (0-4) Urine Squamous Epithelial Cells Few /LPF Urine Bacteria 0 /HPF (0-FEW) Urine Mucus Slight /LPF Urine Opiates Screen Neg (NEG) Urine Methadone Screen Neg (NEG) Urine Barbiturates Neg (NEG) Urine Phencyclidine Screen Neg (NEG) Urine Amphetamine/Methamphetamine Pos (NEG) Urine Benzodiazepines Screen Neg (NEG) Urine Cocaine Screen Neg (NEG) Urine Cannabinoids Screen Neg (NEG) Urine Ethyl Alcohol Neg (NEG) Test 03/02/21 08:30 Troponin I High Sensitivity 14 ng/L (4-75) Laboratory Tests 03/02/21 02:25 Laboratory Tests 03/02/21 02:25 ASSESSMENT/PLAN ASSESSMENT/PLAN 1. Chest pain: doubt ACS, likely MSK 2. Covid-19 pneumonia: unvaccinated, per PCP 3. Tobaccoism 4. HTN: labile episodes 5. Substance abuse: UDS+meth, denies use Recommendations Lifestyle modification Continue covid-19 treatment per PCP Resume home lisinopril Supportive care JUNE WOODS MD 03/03/21 0614: CARDIAC CONSULT ASSESSMENT/PLAN ASSESSMENT/PLAN Patient seen and examined. Agree with AIRCRAFT STRUCTURAL REPAIR MECHANIC's assessment and plan. CP with atypical features and most prob musculoskeletal VA ruled out Continue management of covid PNA per IM Plan echo and ischemic evaluation once covid recovered Thank you for your consultation JAS COLLAZO APRN Mar 02, 2021 11:29 JUNE WOODS MD Mar 03, 2021 06:14
[2021-03-02] MEDS ORDERED: LISINOPRIL 10 MG TABLET PO ONE (13:00)
[2021-03-02] MEDS ORDERED: LISI20TA18 PO ×3 (17:29→17:31)
[2021-03-02 17:56] VITALS: BP 166/85
--- NOTE | 2021-03-02 20:09 | DS ---
DATE OF DISCHARGE: 03/02/2021 HOSPITAL SUMMARY: A 70-year-old white male who came in with nonspecific lower chest pressure and pain up to 3 days with cough, congestion and some malaise. Troponins x2 was negative. Echocardiogram result is pending at this time. CBC and chemistry profile were unremarkable. COVID serology was positive, but PCR pending. Chest x-ray showed some left lower lobe opacities consistent with mild pneumonia, likely from COVID as well. Urine drug screen was positive for methamphetamine and amphetamine. Rest was negative. He was monitored in the ER and no acute cardiac injury was noted and cardiology saw him and was willing to follow up as an outpatient with further testing. He is going to be discharged at this point as he has no need for oxygen with good saturations and his COVID status is relatively mild. He understands that if his chest pain recurs or worsens then he will go back to the ER for further evaluation and definitive admission and possibly a cardiac catheterization. FINAL DIAGNOSES: 1. Chest pain, etiology undetermined. 2. Positive COVID serology with left lower lobe infiltrates, likely secondary to COVID pneumonia. 3. Positive urine drug screen for methamphetamine. 4. Hypertension. OPERATIONS, PROCEDURES, AND COMPLICATIONS: None. CONSULTATION: group. DISPOSITION: Continue home meds including lisinopril, which apparently has not been taking regularly. Meth use discussed and recommended avoiding further abuse of stimulants as it could exacerbate underlying coronary artery disease. Should his COVID status worsens and he will come back to the hospital for further evaluation. Prognosis guarded at this point. We will see in the office as a telemedicine 1 week. RONEY/MIKE DR: Joy TID: [id number]
[2021-03-03] MEDS ORDERED: LISINOPRIL 10 MG TABLET PO SCH (09:00)
== END 2021-03-02 18:20 | disposition home or self-care (01) | DRG 177 ==
LOC: ER 01:13 → ED HOLD 03:34
PROVIDERS: ADMIT Family Medicine; ATTEND Family Medicine
PROC: 5A09357 Assistance with Respiratory Ventilation, Less than 24 Consecutive Hours, Continuous Positive Airway Pressure (ICD-10-PCS; principal; 2021-03-02)
DX: U07.1 COVID-19 (principal); J12.82 Pneumonia due to coronavirus disease 2019; R07.89 Other chest pain; F17.210 Nicotine dependence, cigarettes, uncomplicated; I10 Essential (primary) hypertension; Z82.49 Family history of ischemic heart disease and other diseases of the circulatory system; K21.9 Gastro-esophageal reflux disease without esophagitis; Z88.8 Allergy status to other drugs, medicaments and biological substances; Z28.3 Underimmunization status; F15.10 Other stimulant abuse, uncomplicated
CPT/HCPCS: 36415; 70450; 71045; 80053; 80307; 81001; 83690; 83735; 83880; 84484; 85007; 85025; 87426; 87804; 93005; G0480; 99285-25